=== PATIENT | male | born 1980 | race Caucasian/White ===

== ENCOUNTER 2025-02-06 13:56 | Emergency (ER) | payer OTHER, SELFPAY ==
--- OUTSIDE RECORDS SUMMARY | 2025-02-06 13:59 | XMS_ITS | Clinical Summary ---
Author Organization [facility] Address [address] [place] [id number] Care Team Providers Care Strategic Client Executive Name Role Phone Unavailable Primary Care Provider Unavailabl e Social History Tobacco Use Types Packs/Day Years Used Date Smoking Tobacco: Never Assessed Sex and Gender Information Value Date Recorded Sex Assigned at Not on file Legal Sex Male 4:18 PM CDT Gender Identity Not on file Sexual Orientation Not on file Plan of Treatment Health Maintenance Due Date Last Done Comments Colorectal Cancer Screening Colonoscopy (10 Years) 1979 Annual Physical 1982 Hepatitis C 1997 DTaP, Tdap and Td Vaccines ( 1 - Tdap) 1998 Hepatitis B Vaccines (1 of 3 - 19+ 3-dose series) 1998 HPV Vaccines (1 - 3-dose SCD M series) 2006 COVID-19 Vaccine (2023-2 5 season) 2024 Meningococcal B Vaccine Aged Out No l onger eligible based on patient's age to complete this topic Meningococcal Vaccine Aged Out No gab paulo eligible based on patient's age to complete this topic Pneumococcal Vaccine: Pediat rics (0 to 5 Years) and At-Risk Patients (6 to 49 Years) Aged Out No longer eligible b ased on patient's age to complete this topic RSV Immunizations Under 20 Months Aged Out No longer eligible based on patient's age to complete this topic
[2025-02-06 14:06] VITALS: BP 153/93; PULSE 89; RESP 18; TEMP 36.2; O2SAT 96
--- NOTE | 2025-02-06 14:17 | ED_ITS ---
HPI - Ear Problem General Chief complaint: Ear Stated complaint: LT Ear Pain Time Seen by Provider: 02/06/25 14:12 Source: patient and RN notes reviewed Mode of arrival: ambulatory History of Present Illness HPI Narrative: Patient presents today complaining of a 4 day history of left ear pain radiating to the jaw with some muffled hearing. Also reports some drainage but cannot describe it. Currently rates his pain 4/10 which increases with chewing. He has tried some [id number] sweet oil without improvement Related Data Allergies Allergy/AdvReac Type Severity Reaction Status Date / Time No Known Allergies Allergy Verified 02/06/25 14:02 [facility] Past Medical History Medical History Hyperglycemia RAKESH on CPAP Hypertension Surgical History Surgical History No pertinent past surgical history Social History Social History Social History: 08/16/24 somewhat confident with medical forms Smoking status: Current every day smoker Do You Feel Safe in your Home?: Yes Lack of Transportation: No Lack of Food: Never True Current Housing: Decline to Answer Concerned About Future Housing: No Difficulty Paying Gas/Electric Bills: No Difficulty Paying for Meds: No Currently Unemployed: No Education: Trade/Vocational Certificate Difficulty w/ Childcare or Family Care: No Comments At time of signature, I have reviewed and agree with nursing past medical, surgical, social and family history unless otherwise noted. Please see nursing chart for further information. There is no relevant family history pertinent to the presenting complaint Exam Narrative: GENERAL: Well-appearing, well-nourished, and in no acute distress. HEAD: Normocephalic, atraumatic. EYES: EOMI. No redness or drainage. Conjunctivae normal. ENT: Mucous membranes pink and moist. Nares clear. No rhinorrhea. Right ear normal. Left ear: Canal is slightly edematous and erythematous with small amount of white debris. Slight movement tenderness no tragal tenderness. No mastoid tenderness, swelling, redness. NECK: Normal AROM. Supple. No lymphadenopathy. CHEST: No respiratory distress. EXTREMITIES: Normal range of motion. No edema. SKIN: Warm, dry, no rash. Capillary refill normal. Normal skin turgor. NEURO: No focal deficits. Alert and oriented x3. Gait steady. PSYCH: Normal affect. No signs of depression or anxiety. Course Course Level of Care: Express Care Visit Vital Signs Vital signs: Vital Signs Temperature 97.2 F L 02/06/25 14:06 Pulse Rate 89 02/06/25 14:06 Respiratory Rate 18 02/06/25 14:06 Blood Pressure 153/93 H 02/06/25 14:06 Pulse Oximetry 96 02/06/25 14:06 Oxygen Delivery Room Air 02/06/25 14:06 Temperature 97.2 F L 02/06/25 14:06 Pulse Rate 89 02/06/25 14:06 Respiratory Rate 18 02/06/25 14:06 Blood Pressure 153/93 H 02/06/25 14:06 Pulse Oximetry 96 02/06/25 14:06 Oxygen Delivery Room Air 02/06/25 14:06 Reviewed Medical Decision Making MDM Narrative Medical decision making narrative: 44-year-old male patient presents 4 day history of left ear pain radiating to the jaw with muffled hearing and some drainage. [id number] drops without improvement. Upon exam, findings of edema, erythema, and drainage forearm diagnosis of otitis externa. Prescription for Ciprodex sent to pharmacy. Vital signs stable. Anticipatory guidance given. Differential Diagnosis Differential Diagnosis: Otitis media, otitis externa, ruptured TM, serous otitis, cerumen impaction Vital Signs Vital Signs: Vital Signs Temperature 97.2 F L 02/06/25 14:06 Pulse Rate 89 02/06/25 14:06 Respiratory Rate 18 02/06/25 14:06 Blood Pressure 153/93 H 02/06/25 14:06 Pulse Oximetry 96 02/06/25 14:06 Oxygen Delivery Room Air 02/06/25 14:06 Temperature 97.2 F L 02/06/25 14:06 Pulse Rate 89 02/06/25 14:06 Respiratory Rate 18 02/06/25 14:06 Blood Pressure 153/93 H 02/06/25 14:06 Pulse Oximetry 96 02/06/25 14:06 Oxygen Delivery Room Air 02/06/25 14:06 Critical Care Time Critical Care Time Critical Care Time: No Discharge Plan Discharge Clinical Impression: Left otitis externa Patient Disposition: Home Condition: Stable Instructions: Swimmer's Ear (ED) Additional Instructions: You have been diagnosed with an infection in your ear canal. Please use the ear drops as directed. Keep the ears dry as possible. Do not submerge your head in standing water such as pools, hot tubs, lakes, bathtubs, until the infection has resolved. Showering is fine. Do not use anything in the ear that can be irritating such as Q-tips, ear plugs, ear buds. Take Tylenol or ibuprofen for pain, if able. Follow-up with your PCP in 3 days if symptoms are not improving. Your blood pressure was elevated above 120/80 today at Urgent Care. This puts you above the threshold for follow up. Please schedule a followup visit with your personal physician as soon as possible, for further evaluation and treatment. Even blood pressure exceeding 120/80 may indicate pre-hypertension. Patient Language: Kiswahili Prescriptions: New ciprofloxacin-dexamethasone 0.3-0.1 % drops,suspension 4 drp LEFT EAR Q12H 7 Days Qty: 7.5 0RF No Action losartan-hydrochlorothiazide 100-12.5 mg tablet 1 tablet PO DAILY Qty: 90 1RF bupropion HCl [Wellbutrin XL] 300 mg tablet extended release 24 hr 300 mg PO QAM Qty: 90 1RF albuterol sulfate 90 mcg/actuation HFA aerosol inhaler 1 - 2 inh inhalation Q4-6H PRN (Reason: shortness of breath or wheezing) Qty: 8.5 0RF Follow-up/Referrals: Jenny Raines PA-C [Primary Care Provider] - Time of Disposition: 14:20
== END 2025-02-06 14:22 | disposition home or self-care (01) ==
PROVIDERS: Emergency Provider Nurse Practitioner; PCP Physician Assistant Medical
DX: H60.92 Unspecified otitis externa, left ear (principal); F17.200 Nicotine dependence, unspecified, uncomplicated; I10 Essential (primary) hypertension; G47.33 Obstructive sleep apnea (adult) (pediatric)
CPT/HCPCS: 99213; G0463

== ENCOUNTER 2025-05-06 07:08 | Outpatient (CLI) | payer OTHER, SELFPAY ==
--- OUTSIDE RECORDS SUMMARY | 2025-05-06 07:11 | XMS_ITS | Clinical Summary ---
Author Organization [facility] Address [address] [place] [address] Care Team Providers Care Enforcement Manager Name Role Phone Jenny Raines PA-C Primary Care Provider [phone]- [phone] Encounters Date Type Department Care Team Description 03/15/2025 9:00 AM CDT - 03/15/2025 11:59 PM CDT Hospital Encounter [facility] Ultrasound [address] [place] [address] Jenny Raines PA-C Discharge Disposition: Home or Self Care (Routine Discharge) 03/15/2025 Travel from Last 3 Months Social History Tobacco Use Types Packs/Day Years [...] 1979 Annual Physical 1982 Hepatitis C 1997 Hepatitis B Vaccines (1 of 3 - 19+ 3-dose series) 1998 COVID-19 Vaccine (2023-2 5 season) 2025 Influenza Adult (#1) 2025 DTaP, Tdap and Td Vaccines ( 2 - Td or Tdap) 02/27/2035 02/27/2025 Hepatitis A Vaccines Aged Out No long er eligible based on patient's age to complete this topic Meningococcal B Vaccine Aged Out No l onger eligible based on patient's age to complete this topic Meningococcal Vaccine Aged Out No gab paulo eligible based on patient's age to complete this topic Pneumococcal Vaccine: Pediat rics (0 to 5 Years) and At-Risk Patients (6 to 49 Years) Aged Out No longer eligi ble based on patient's age to complete this topic RSV Immunizations Under 20 Months Aged Out No longer eligible based on patient's age to complete this topic Procedures Procedure Name Priority Date/Time Associated Diagnosis Comments US ABD LIMITED Routine 03/15/2025 9:32 AM CDT Abnormal levels of other serum enzymes from Last 3 Months Results * US ABD LIMITED (03/15/2025 9:32 AM CDT) Anatomical Region Laterality Modality Abdomen Ultrasound 03/15/2025 9:38 AM CDT Impressions 03/15/2025 9:40 AM CDT IMPRESSION: Hepatomegaly and hepatic steatosis. Ordered By: JENNY RAINES Interpreted By: Uvaldo Brown MD, 03/15/2025 9:38 AM Narrative 03/15/2025 9:40 AM CDT [facility] [address] [place] [address] EXAM: ABDOMINAL ULTRASOUND LIMITED INDICATION: Elevated liver enzymes. TECHNIQUE: Grayscale, Color, and Spectral Doppler images of the right upper quadrant abdomen were obtained. COMPARISON: None FINDINGS: Pancreas: Limited visualization of the pancreas secondary to overlying bowel gas. Liver: Increased echogenicity compatible with hepatic steatosis. No focal hepatic lesion identified. The liver measures 20.0 cm. The main portal vein is patent with appropriate direction of flow. Gallbladder: No cholelithiasis, gallbladder wall thickening, or pericholecystic fluid. Gallbladder wall thickness measures 2 mm. Sonographic Lr's sign is negative. Bile Ducts: No intrahepatic or extrahepatic biliary ductal dilatation. Common bile duct measures 5 mm. Right Kidney: Unremarkable. No hydronephrosis. Measures 11.7 cm. Procedure Note Uvaldo Brown MD - 03/15/2025 [facility] [address] [place] [address] EXAM: ABDOMINAL ULTRASOUND LIMITED INDICATION: Elevated liver enzymes. TECHNIQUE: Grayscale, Color, and Spectral Doppler images of the rightupper quadrant abdomen were obtained. COMPARISON: None FINDINGS: Pancreas: Limited visualization of the pancreas secondary to overlyingbowel gas. Liver: Increased echogenicity compatible with hepatic steatosis. No focalhepatic lesion identified. The liver measures 20.0 cm. The main portalvein is patent with appropriate direction of flow. Gallbladder: No cholelithiasis, gallbladder wall thickening, orpericholecystic fluid. Gallbladder wall thickness measures 2 mm.Sonographic Lr's sign is negative. Bile Ducts: No intrahepatic or extrahepatic biliary ductal dilatation.Common bile duct measures 5 mm. Right Kidney: Unremarkable. No hydronephrosis. Measures 11.7 cm. IMPRESSION: Hepatomegaly and hepatic steatosis. 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
[2025-05-06 07:46] LABS: Hematocrit 50.3 % (42.0-52.0); Hemoglobin 16.6 g/dL (14.0-18.0); Mean Corpuscular HGB Conc 33.0 g/dl (32-36); Mean Corpuscular Hemoglobin 29.7 pg (26-34); Mean Corpuscular Volume 90.1 fl (80-100); Platelet Count Result 217 k/mm3 (150-375); Red Blood Count 5.58 M/mm3 (4.6-6.20); White Blood Count 6.8 K/mm3 (4.5-10.0)
[2025-05-06 07:57] LABS: INR 1.0; Prothrombin Time 12.9 Seconds (11.1-14.7)
[2025-05-06 08:03] LABS: Iron 90 ug/dL (49-181)
[2025-05-06 08:06] LABS: Alanine Aminotransferase 76 U/L (6-50); Albumin Level 4.4 g/dL (3.5-5.1); Alkaline Phosphatase 38 U/L (38-126); Anion Gap 9 mmol/L (4-12); Aspartate Amino Transferase 37 U/L (17-59); Bilirubin,Total 0.7 mg/dL (0.2-1.3); Blood Urea Nitrogen 18 mg/dL (9-20); Calcium 9.1 mg/dL (8.4-10.2); Carbon Dioxide 25 mmol/L (22-30); Chloride 104 mmol/L (98-107); Estimated Glomerular Filt Rate > 60; Glucose 107 mg/dL (65-110); Potassium 3.8 mmol/L (3.4-5.0); Sodium 138 mmol/L (137-145); Total Protein 7.2 g/dL (6.3-8.2)
[2025-05-06 08:11] LABS: Immunoglobulin G 748 mg/dL (700-1600)
[2025-05-06 08:15] LABS: Percent Iron Saturation 23 % (20-50)
[2025-05-06 08:35] LABS: Hepatitis B Surface Antigen Negative (Negative)
[2025-05-06 08:41] LABS: HAV RESULT Negative (Negative); Hepatitis B Core IgM Result Negative (Negative)
[2025-05-06 08:44] LABS: Ferritin 163.00 ng/mL (17.9-464)
[2025-05-08 10:08] LABS: GGT 42 IU/L (0-65)
[2025-05-09 16:08] LABS: ANA by IFA Rfx Titer/Pattern Negative (.)
[2025-05-10 10:08] LABS: ALT (SGPT) P5P 69 IU/L (0-55); AST (SGOT) P5P 32 IU/L (0-40); Alpha 2-Macroglobulins, Qn 113 mg/dL (110-276); Bilirubin, Total 0.4 mg/dL (0.0-1.2); Cholesterol, Total 210 mg/dL (100-199); GGT 40 IU/L (0-65); Glucose 105 mg/dL (70-99); Triglycerides 127 mg/dL (0-149)
== END 2025-05-06 07:09 | disposition home or self-care (01) ==
LOC: ANHLAB 07:09
PROVIDERS: PCP Physician Assistant Medical; Visit Provider Nurse Practitioner
DX: R74.8 Abnormal levels of other serum enzymes (principal); K76.0 Fatty (change of) liver, not elsewhere classified; E66.9 Obesity, unspecified
CPT/HCPCS: 36415; 80053; 80074; 82103; 82172; 82247; 82390; 82465; 82728; 82784; 82947; 82977; 83010; 83540; 83550; 83883; 84450; 84460; 84478; 85027; 85610; 86015; 86038; 86381